=== PATIENT | male | born 1960 | race Caucasian/White ===

== ENCOUNTER 2017-03-21 21:00 | Inpatient (IN) | payer MEDICARE, OTHER ==
--- NOTE | ~2017-03-21 | PN ---
Unit #: [id number] #: [id number] Patient: CORAL MO [id number] [facility] [address] [place] [address] [id number] I MR#: [id number] NAME: CORAL MO ROOM: P252 Age: 56 Sex: M Admission Date: 03/22/2017 : 1960 Attending Physician: Daniel Lopez M.D. Admitting Physician: Daniel Lopez M.D. Primary Care Physician: Primary Care Physician Carin DAMON PROGRESS NOTES DATE 03/23/2017 DISCUSSION The patient is compliant with medications, and brown routine, but has declined for labs to be drawn. He is compliant with reinitiation of medications and continues to complain of dysphoric mood and some paranoia. Dictated by... Daniel Lopez M.D. CB/kory TD: 03/23/2017 12:55 JOB #: [id number] [facility] PROGRESS NOTES Page 1 of 1 X Daniel Lopez MD PROGRESS NOTE
--- NOTE | ~2017-03-21 | PN ---
Unit #: [id number] #: [id number] Patient: CORAL [place] [id number] [facility] [address] [place] [address] [id number] I MR#: [id number] NAME: CORAL MO ROOM: P252 Age: 56 Sex: M Admission Date: 03/22/2017 : 1960 Attending Physician: Daniel Lopez M.D. Admitting Physician: Daniel Lopez M.D. Primary Care Physician: Primary Care Physician Carin DAMON PROGRESS NOTES DATE 03/26/2017 DISCUSSION The patient continues to complain of dysphoric mood. A Depakote level is today pending. The patient has been more active within the therapeutic milieu during this hospital stay. Dictated by... Daniel Lopez M.D. CB/bzg TD: 03/26/2017 14:43 JOB #: [id number] [facility] PROGRESS NOTES Page 1 of 1 X Daniel Lopez MD X PROGRESS NOTE
--- NOTE | ~2017-03-21 | PN ---
Unit #: [id number] #: [id number] Patient: CORAL MO [id number] [facility] [address] [place] [address] [id number] I MR#: [id number] NAME: CORAL MO ROOM: P252 Age: 56 Sex: M Admission Date: 03/22/2017 : 1960 Attending Physician: Daniel Lopez M.D. Admitting Physician: Daniel Lopez M.D. Primary Care Physician: Primary Care Physician Carin GAN NOTES DATE 03/27/2017 DISCUSSION The patient's Depakote level came back yesterday, low at 15, which is understandable given the fact that the patient now admits that he has been taking only one of the three prescribed Depakote tablets. I have firmly confronted him regarding his need to fully comply with his prescribed medication. He is requesting "something for my knee," and I will add Naprosyn to be given twice daily p.r.n. Again, the importance of consistent compliance is discussed somewhat forcefully with the patient today. Dictated by... Daniel Lopez M.D. CB/keisha TD: 03/27/2017 11:47 JOB #: [id number] [facility] GAN NOTES Page 1 of 1 X Daniel Lopez MD X PROGRESS NOTE
--- NOTE | ~2017-03-21 | HP ---
Unit #: [id number] #: [id number] Patient: ZURDO [place] [id number] [place] [address] [id number] I MR#: [id number] NAME: ZURDO MO ROOM: P252 Age: 56 Sex: M Admission Date: 03/22/2017 : 1960 Attending Physician: Daniel Lopez M.D. Admitting Physician: Daniel Lopez M.D. Primary Care Physician: Primary Care Physician No HISTORY AND PHYSICAL HISTORY OF PRESENT ILLNESS Zurdo is a 56 year old admitted to [address] [place] [address] because of his continued abuse of alcohol. He has had other admissions to this facility for treatment of the same. PAST MEDICAL HISTORY 1. Long history of alcohol abuse. 2. Obesity. 3. COPD. 4. High blood pressure. 5. History of dermatitis. 6. Cirrhosis. PAST SURGICAL HISTORY Nothing reported. ALLERGIES Haldol, Seroquel, Risperdal, Zyprexa. SOCIAL HISTORY He does not smoke. Drinks alcohol frequently and denies illicit drug use. FAMILY HISTORY Medically noncontributory. REVIEW OF SYSTEMS CONSTITUTIONAL: No fever or chills. HEENT: Denies any sore throat, ear pain or runny nose. CARDIOVASCULAR: Denies chest pain, irregular heart rhythm or palpitations. CHEST: Denies shortness of breath or cough. No hemoptysis. GASTROINTESTINAL: Denies nausea, vomiting, diarrhea or chronic constipation. ENDOCRINE: Denies history of increased thirst or urination. No recent significant weight loss or gain. GENITOURINARY: Denies dysuria, frequency, or hematuria. SKIN: Denies any rashes. HEMATOLOGIC: Denies history of increased bleeding or bruising. MUSCULOSKELETAL: Denies any hot, swollen joints. No generalized muscle pain. NEUROLOGIC: Denies problems with vision or speech. No frequent, severe headaches. No numbness, tingling or weakness in any extremities. Denies loss of bladder or bowel control. Unit #: [id number] #: [id number] Patient: ZURDO MO CURRENT MEDICATIONS 1. Detox protocol 2. Depakote ER 1500 mg q.h.s. 3. BuSpar 15 mg t.i.d. PHYSICAL EXAMINATION GENERAL: Alert, obese, in no apparent distress. VITAL SIGNS: Blood pressure 160/94, heart rate 90, respirations 16, temperature 98.6. WEIGHT: 270 pounds. HEIGHT: 6'0". SKIN: Warm and dry without rash or lesion. HEENT: Normocephalic. TMs not viewed. Oral and nasal passages clear. Conjunctivae clear. Pupils equal, round and reactive to light and accommodation. Extraocular movements intact. NECK: Supple without lymphadenopathy or thyromegaly. HEART: Regular rate and rhythm without murmur. LUNGS: Clear. ABDOMEN: Soft, nontender. : Not done. EXTREMITIES: No evidence of cyanosis, clubbing or edema. Moves all extremities without focal deficit. NEUROLOGICAL: Grossly within normal limits. Cranial Nerves: II: Visual jackson are intact. III, IV AND : Extraocular movements are intact. Pupils are equal, round and reactive to light. V: Facial sensation is grossly normal. VII: Facial movements and expression are normal. VIII: Auditory acuity grossly intact. IX, X: Uvula is midline. Phonation is normal. XI: Patient shrugs shoulders and turns head normally. XII: Tongue protrudes in the midline. Sensory and Motor Function: Sensory and motor sensation is grossly normal. Motor: moves all extremities well. Coordination: Gait is normal. Deep Tendon Reflexes: Intact. IMPRESSION Psychiatric admission RECOMMENDATIONS PSYCHIATRIC: Per psychiatrist. MEDICAL: 1. I see no contraindications to participating in facility's activities. 2. Detox per protocol. 3. The patient is admitted on no blood pressure medications. Would start Norvasc 5 mg 1 p.o. q day. Continue to monitor blood pressure. He needs to follow up with PCP. MEDICAL PROGNOSIS Good. MEDICAL CONDITION Stable. Unit #: [id number] #: [id number] Patient: ZURDO MO Dictated by... Janna Puckett P.A.-C. for Dudley Melendez/debra TD: 03/23/2017 03:55 JOB #: [id number] HISTORY AND PHYSICAL Page 1 of 1 X Janna Puckett X HISTORY AND PHYSICAL
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
--- NOTE | ~2017-03-21 | PN ---
Unit #: [id number] #: [id number] Patient: CORAL MO [id number] [facility] [address] [place] [address] [id number] I MR#: [id number] NAME: CORAL MO ROOM: P252 Age: 56 Sex: M Admission Date: 03/22/2017 : 1960 Attending Physician: Daniel Lopez M.D. Admitting Physician: Daniel Lopez M.D. Primary Care Physician: Primary Care Physician Carin DAMON PROGRESS NOTES DATE 03/24/2017 DISCUSSION The patient is complaining of increased dizziness with reinitiation of his psychotropic medications, but otherwise his mood seems a bit brighter though he continues to endorse hopelessness and suicidal ideation related to his current living situation. I have encouraged him to increase his participation within the therapeutic milieu. I discussed with him realistic expectations of inpatient care. Dictated by... Daniel Lopez M.D. CB/bzg TD: 03/24/2017 12:35 JOB #: [id number] [facility] PROGRESS NOTES Page 1 of 1 X Daniel Lopez MD X PROGRESS NOTE
--- NOTE | ~2017-03-21 | DS ---
Unit #: [id number] #: [id number] Patient: CORAL MO [id number] [place] [address] [id number] I MR#: [id number] NAME: CORAL MO ROOM: P258 Age: 56 Sex: M Admission Date: 03/22/2017 : 1960 Discharge Date: 03/30/2017 Attending Physician: Daniel Lopez M.D. Primary Care Physician: Carin Primary Care Physician DISCHARGE SUMMARY REASON FOR ADMISSION The patient is a 56-year-old white male admitted to [facility] unit with increasing depression and suicidal ideation as well as increasing alcohol use. HOSPITAL COURSE The patient was admitted to the -[facility] unit and restarted on previously effective medications including Depakote and BuSpar. The patient was initially not compliant with his whole dose of Depakote, but after a discussion with this physician regarding the importance of full compliance did begin to comply fully with his prescribed medications. Otherwise his stay in the hospital was fairly uneventful and his detox went smoothly. By 03/29/2017 the patient was in bright spirits, requesting discharge that was ordered. DISCHARGE DIAGNOSES 1. Bipolar disorder, most recent episode depressed. 2. Alcohol use disorder. 3. History of knee injury. 4. Hypertension. 5. Diabetes mellitus. DISPOSITION The patient is discharged home. FOLLOWUP CARE Followup will take place through the auspices of [facility]. DISCHARGE MEDICATIONS 1. Naprosyn 375 mg q.12 h. p.r.n. knee pain. 2. Glucophage 1000 mg daily for diabetic management. 3. Norvasc 5 mg daily for hypertension. 4. BuSpar 15 mg t.i.d. for anxiety. 5. Depakote ER 1500 mg at bedtime for mood stabilization. 6. Desyrel 100 mg at nighttime p.r.n. insomnia. PROGNOSIS Fair. DIET AND ACTIVITY No restrictions. Unit #: [id number] #: [id number] Patient: CORAL MO Dictated by... Dudley Miguel TD: 03/31/2017 09:51 JOB #: [id number] DISCHARGE SUMMARY Page 1 of 1 X Daniel Lopez MD DISCHARGE SUMMARY
--- NOTE | ~2017-03-21 | CO ---
Unit #: [id number] #: [id number] Patient: Z[place]DO [place] [id number] [place] [address] [id number] I MR#: [id number] NAME: ZURDO MO ROOM: P252 Age: 56 Sex: M Admission Date: 03/22/2017 : 1960 Attending Physician: Daniel Lopez M.D. Primary Care Physician: Primary Care Physician No Consultation Date: 03/22/2017 CONSULTATION REPORT SUBJECTIVE Zurdo is a 56-year-old who has a history of high blood pressure. He was admitted on no medications. Please see H and P dated 03/22/2017. He has been started on Norvasc 5 mg p.o. daily. Dictated by... Janna Puckett P.A.-C. for Dudley Melendez/higinio TD: 03/24/2017 02:34 JOB #: [id number] CONSULTATION REPORT Page 1 of 1 X Janna Puckett CONSULTATION REPORT
--- NOTE | ~2017-03-21 | DS ---
Unit #: [id number] #: [id number] Patient: CORAL MO [id number] [place] [address] [id number] I MR#: [id number] NAME: CORAL MO ROOM: P258 Age: 56 Sex: M Admission Date: 03/22/2017 : 1960 Discharge Date: 03/30/2017 Attending Physician: Daniel Lopez M.D. Primary Care Physician: Primary Care Physician No DISCHARGE SUMMARY JOB NOTE: ADDENDUM ADDENDUM The patient's discharge was canceled on 03/29/2017 after the patient had reported recurrent suicidal ideation. On 03/30/2017, the patient reported that he had "worked things out" and requested discharge. As per his request, discharge was ordered. Dictated by... Daniel Lopez M.D. CB/higinio TD: 03/30/2017 23:36 JOB #: [id number] DISCHARGE SUMMARY Page 1 of 1 X Dainel Lopez MD X DISCHARGE SUMMARY
--- NOTE | ~2017-03-21 | PN ---
Unit #: [id number] #: [id number] Patient: CORAL [place] [id number] [facility] [address] [place] [address] [id number] Malini MR#: [id number] NAME: CORAL MO ROOM: P252 Age: 56 Sex: M Admission Date: 03/22/2017 : 1960 Attending Physician: Daniel Lopez M.D. Admitting Physician: Daniel Lopez M.D. Primary Care Physician: Carin Primary Care Physician [facility] PROGRESS NOTES DATE 03/25/2017 DISCUSSION The patient, because of elevated glucose, is now on a diabetic diet and we are awaiting medical consult. I will check a Depakote level tomorrow and we are looking to discharge the patient in the next couple of days. Dictated by... Daniel Lopez M.D. CB/bianka TD: 03/25/2017 13:21 JOB #: [id number] [facility] PROGRESS NOTES Page 1 of 1 X Daniel Lopez MD PROGRESS NOTE
--- NOTE | ~2017-03-21 | PN ---
Unit #: [id number] #: [id number] Patient: CORAL [place] [id number] [facility] [address] [place] [address] [id number] I MR#: [id number] NAME: CORAL MO ROOM: P252 Age: 56 Sex: M Admission Date: 03/22/2017 : 1960 Attending Physician: Daniel Lopez M.D. Admitting Physician: Daniel Lopez M.D. Primary Care Physician: Primary Care Physician Carin DAMON PROGRESS NOTES DATE 03/28/2017 DISCUSSION The patient states that he "feels better than he has felt in 10 years" with addition of Depakote. He also reports good response to initiation of Naprosyn for knee pain. He is in good spirits and we will continue current treatment expecting a.m. discharge. Dictated by... Daniel Lopez M.D. CB/debra TD: 03/29/2017 01:58 JOB #: [id number] [facility] PROGRESS NOTES Page 1 of 1 X Daniel Lopez MD PROGRESS NOTE
--- NOTE | ~2017-03-21 | CO ---
Unit #: [id number] #: [id number] Patient: ZURDO MO [id number] [place] [address] [id number] I MR#: [id number] NAME: ZURDO MO ROOM: P252 Age: 56 Sex: M Admission Date: 03/22/2017 : 1960 Attending Physician: Daniel Lopez M.D. Primary Care Physician: Primary Care Physician No CONSULTATION REPORT SUBJECTIVE Zurdo is a 56-year-old with a history of alcohol abuse. At time of admission, he gave no history of diabetes mellitus. Admission urinalysis showed a glucose greater than 1000. Serum glucose 251. The patient had no complaints of polyuria or polydipsia. He was started on glucophage 500 mg one p.o. b.i.d. with plans to increase this if tolerated. He knows to follow up with PCP upon discharge. Dictated by... Janna Puckett P.A.-C. for LUZ/yane TD: 03/28/2017 14:18 JOB #: [id number] CONSULTATION REPORT Page 1 of 1 X Janna Puckett CONSULTATION REPORT
[2017-03-23 10:01] LABS: URINE APPEARANCE CLEAR; URINE BILIRUBIN NEG (NEG); URINE BLOOD NEG (NEG); URINE COLOR YELLOW; URINE GLUCOSE >1000 MG/DL (NEG); URINE KETONE 1+ (NEG); URINE LEUKOCYTE ESTERASE NEG (NEG); URINE NITRATE NEG (NEG); URINE PH 6.5 (5-8); URINE PROTEIN NEG (NEG); URINE SPECIFIC GRAVITY 1.037 (1.003-1.035)
[2017-03-23 10:24] LABS: AMPHETAMINE NEG (NEG); BARBITURATES NEG (NEG); BENZODIAZEPINES NEG (NEG); COCAINE NEG (NEG); MARIJUANA NEG (NEG); OPIATES NEG (NEG); TRICYCLIC ANTIDEPRESSANTS NEG (NEG); U METHADONE NEG (NEG)
[2017-03-26 09:47] LABS: BASOPHIL% 0.5 % (0-2.5); EOSINOPHIL# 0.1 X10e3 (0-0.7); EOSINOPHIL% 1.6 % (0.0-7.0); HEMATOCRIT 48.3 % (38.0-50.0); HEMOGLOBIN 16.2 gm/dL (13.0-16.0); LYMPHOCYTE# 0.9 X10e3 (1.0-3.5); LYMPHOCYTE% 14.4 % (17.0-45.0); MEAN CELL VOLUME 94.9 FL (83-96); MEAN CORPUSCULAR HEMOGLOBIN 31.7 PG (28-34); MEAN CORPUSCULAR HGB CONC 33.4 g/dL (30-36); MEAN PLATELET VOLUME 8.5 FL (6.5-11.5); MONOCYTE# 0.8 X10e3 (0-1.0); MONOCYTE% 13.3 % (3.0-12.0); NEUTROPHIL# 4.4 X10e3 (1.5-7.1); NEUTROPHIL% 70.2 % (40-75); PLATELET COUNT 206 X10e3 (140-420); RED BLOOD COUNT 5.09 X10e (3.90-5.60); RED CELL DISTRIBUTION WIDTH 12.4 % (11.0-15.5); WHITE BLOOD COUNT 6.2 X10e3 (4.0-10.5)
[2017-03-26 10:01] LABS: DIFF IND NO
[2017-03-26 10:27] LABS: BILIRUBIN,TOTAL 0.7 mg/dL (0.2-2.0); CALCIUM SERUM 9.2 mg/dL (8.4-10.2); GLOM FILT RATE Estimated 83.8 mL/min (>60); POTASSIUM 4.8 mmol/L (3.5-5.1); PROTEIN TOTAL SERUM 7.2 g/dL (6.0-8.3)
== END 2017-03-30 14:45 | disposition home or self-care (01) | DRG 885 ==
LOC: P2L 03-22 01:25
PROVIDERS: Specialist
PROC: HZ2ZZZZ Detoxification Services for Substance Abuse Treatment (ICD-10-PCS; principal; 2017-03-22)
DX: F31.30 Bipolar disorder, current episode depressed, mild or moderate severity, unspecified (principal); K74.60 Unspecified cirrhosis of liver; E11.9 Type 2 diabetes mellitus without complications; I10 Essential (primary) hypertension; E66.9 Obesity, unspecified; J44.9 Chronic obstructive pulmonary disease, unspecified; F10.20 Alcohol dependence, uncomplicated
CPT/HCPCS: 80053; 80164; 80307; 81003; 82140; 85025; 86592

== ENCOUNTER 2017-04-22 14:28 | Inpatient (IN) | payer MEDICARE, OTHER ==
--- NOTE | ~2017-04-22 | PN ---
Unit #: [id number] #: [id number] Patient: CORAL [place] [id number] [facility] [address] [place] [address] [id number] I MR#: [id number] NAME: CORAL MO ROOM: P178 Age: 56 Sex: M Admission Date: 04/22/2017 : 1960 Attending Physician: Daniel Lopez M.D. Admitting Physician: Daniel Lopez M.D. Primary Care Physician: Primary Care Physician Carin DAMON PROGRESS NOTES DATE 04/27/2017 DISCUSSION The patient is in brighter spirits today and seems less pressured, a Depakote level is pending and discharge is likely to take place within the next couple of days as the patient appears to be approaching his psychiatric baseline. Dictated by... Daniel Lopez M.D. CB/kory TD: 04/28/2017 08:53 JOB #: [id number] [facility] PROGRESS NOTES Page 1 of 1 X Daniel Lopez MD PROGRESS NOTE
--- NOTE | ~2017-04-22 | PN ---
Unit #: [id number] #: [id number] Patient: CORAL MO [id number] [facility] [address] [place] [address] [id number] I MR#: [id number] NAME: CORAL MO ROOM: P178 Age: 56 Sex: M Admission Date: 04/22/2017 : 1960 Attending Physician: Daniel Lopez M.D. Admitting Physician: Daniel Lopez M.D. Primary Care Physician: Primary Care Physician Carin DAMON PROGRESS NOTES DATE 04/26/2017 DISCUSSION The patient remains somewhat elevated and pressured in his presentation. A repeat Depakote level is due tomorrow. We continue current treatment. Dictated by... Daniel Lopez M.D. CB/debra TD: 04/27/2017 05:56 JOB #: [id number] [facility] PROGRESS NOTES Page 1 of 1 X Daniel Lopez MD X PROGRESS NOTE
--- NOTE | ~2017-04-22 | CO ---
Unit #: [id number] #: [id number] Patient: ZURDO [place] 885132 [place] [address] [id number] I MR#: [id number] NAME: ZURDO MO ROOM: P178 Age: 56 Sex: M Admission Date: 04/22/2017 : 1960 Attending Physician: Daniel Lopez M.D. Primary Care Physician: Primary Care Physician No Consultation Date: 04/29/2017 CONSULTATION REPORT SUBJECTIVE Zurdo is a 56-year-old with long history of alcohol abuse and diabetes mellitus. We have been asked to see him for a small sore on his little toe. The patient has no complaints. The area is without redness, swelling, heat, or pus. Pedal pulses detected. ASSESSMENT Small blister on his toe. PLAN Keep it clean with soap and water. Dictated by... Tho ArizmendiAAlfred. for Dudley Melendez/higinio TD: 04/30/2017 22:23 JOB #: [id number] CONSULTATION REPORT Page 1 of 1 X Janna Puckett CONSULTATION REPORT
--- NOTE | ~2017-04-22 | CO ---
Unit #: [id number] #: [id number] Patient: Z[place]DO MO 126346 [place] [address] [id number] I MR#: [id number] NAME: ZURDO MO ROOM: P178 Age: 56 Sex: M Admission Date: 04/22/2017 : 1960 Attending Physician: Daniel Lopez M.D. Primary Care Physician: Primary Care Physician No Consultation Date: 04/25/2017 CONSULTATION REPORT Medical consult was requested by Dr. Lopez and completed on 04/25/2017. HISTORY OF PRESENT ILLNESS Zurdo reports 3 days ago he had diarrhea after restarting his Glucophage. He had not been taking it at home once he was started on 1000 mg b.i.d. The diarrhea was extremely severe. He had some abdominal cramping and took medicines to treat the diarrhea. The diarrhea stopped and since then, he has not had any more bowel movements. He has not had any abdominal pain or fullness, but he is concerned that he might be constipated. He also has reports of occasionally things in the air floating into his eyes and causing some dryness in his eyes. Occasionally, he has some itching and some redness and has to remove mucus from his eyes. He reports that since he has been here that has stopped. He also reports that he has been diagnosed with type 2 diabetes, but he has not been taking his medications due to situation at home and with his neighbors. He stopped taking the Glucophage and so therefore, he has not been taking it. He has no other complaints. PHYSICAL EXAMINATION CARDIAC: Regular rate and rhythm. No murmurs, gallops, or rubs. RESPIRATORY: Clear to auscultation bilaterally. No conjunctivitis noted. ASSESSMENT AND PLAN 1. Allergic conjunctivitis. We will begin cetirizine 10 mg p.o. daily. 2. Type 2 diabetes. We will continue with Glucophage 100 mg p.o. b.i.d. and check fasting blood sugars only for 72 hours. 3. Constipation, we will begin Colace 100 mg p.o. b.i.d. The patient has verified that this is likely due to severe diarrhea for a day or 2 prior. Due to constipation, he will avoid caffeine and increase water intake. Dictated by... Claudette Bajwa/higinio TD: 04/25/2017 18:41 JOB #: [id number] Unit #: [id number] #: [id number] Patient: ZURDO MO TONY CONSULTATION REPORT Page 1 of 1 X MARY MAYBERRY APRN CONSULTATION REPORT
--- NOTE | ~2017-04-22 | DS ---
Unit #: [id number] #: [id number] Patient: CORAL [place] [id number] [place] [address] [id number] I MR#: [id number] NAME: CORAL MO ROOM: P178 Age: 56 Sex: M Admission Date: 04/22/2017 : 1960 Discharge Date: 04/30/2017 Attending Physician: Daniel Lopez M.D. Primary Care Physician: Primary Care Physician No DISCHARGE SUMMARY REASON FOR ADMISSION The patient is a 56-year-old white male, admitted with worsening depression and alcohol use. HOSPITAL COURSE The patient was admitted to the [facility] unit and placed on suicide precautions. A routine detoxification protocol for alcohol was ordered and the patient was restarted on Depakote 1500 mg at bedtime. He showed slow, but steady improvement and his detox was an uneventful one. By 04/30/2017, the patient was in brighter spirits and denied suicidal ideation. He requested discharge and was ordered. FINAL DIAGNOSES Bipolar disorder, most recent episode, mixed; alcohol use disorder; diabetes mellitus; hypertension. DISPOSITION ON DISCHARGE The patient is discharged on the following medications: Desyrel 100 mg at bedtime for insomnia, Depakote ER 500 mg three tablets at bedtime for mood stabilization, BuSpar 15 mg t.i.d. for anxiety, Glucophage 500 mg b.i.d. for diabetic management, naproxen 375 mg every 12 hours p.r.n. pain, Norvasc 5 mg once daily for hypertension. DISCHARGE INSTRUCTIONS No dietary or physical restrictions were placed upon the patient at the time of discharge. FOLLOWUP Followup will take place through the auspices of [facility]. PROGNOSIS The patient's prognosis is considered fair. Dictated by... Daniel Lopez M.D. CB/higinio TD: 04/30/2017 15:00 JOB #: [id number] Unit #: [id number] #: [id number] Patient: CORAL MO DISCHARGE SUMMARY Page 1 of 1 X Daniel Lopez MD X DISCHARGE SUMMARY
--- NOTE | ~2017-04-22 | PN ---
Unit #: [id number] #: [id number] Patient: CORAL MO [id number] [facility] [address] [place] [address] [id number] I MR#: [id number] NAME: CORAL MO ROOM: P178 Age: 56 Sex: M Admission Date: 04/22/2017 : 1960 Attending Physician: Daniel Lopez M.D. Admitting Physician: Daniel Lopez M.D. Primary Care Physician: Primary Care Physician No [facility] PROGRESS NOTES DATE 04/25/2017 DISCUSSION The patient is somewhat expansive and exhibits expansive elevated mood today with hypertalkativity. We will recheck a Depakote level on Wednesday and may need to adjust accordingly. Dictated by... Daniel Lopez M.D. CB/debra TD: 04/25/2017 22:57 JOB #: [id number] [facility] PROGRESS NOTES Page 1 of 1 X Daniel Lopez MD X PROGRESS NOTE
--- NOTE | ~2017-04-22 | HP ---
Unit #: [id number] #: [id number] Patient: ZURDO MO [id number] [place] [address] [id number] I MR#: [id number] NAME: ZURDO MO ROOM: P178 Age: 56 Sex: M Admission Date: 04/22/2017 : 1960 Attending Physician: Daniel Lopez M.D. Admitting Physician: Daniel Lopez M.D. Primary Care Physician: Primary Care Physician No HISTORY AND PHYSICAL HISTORY OF PRESENT ILLNESS Zurdo is a 56 year old, admitted to [facility] because of his continued abuse of alcohol. He was recently discharged from this facility after treatment for the same. The patient was seen and history and physical, dated 03/22/2017 was reviewed. This is current. No changes. Please see history and physical, dated 03/22/2017. Dictated by... Janna Puckett P.A.-C. for Dudley Melendez/kory TD: 04/23/2017 12:04 JOB #: [id number] HISTORY AND PHYSICAL Page 1 of 1 X Janna Puckett HISTORY AND PHYSICAL
--- NOTE | ~2017-04-22 | PN ---
Unit #: [id number] #: [id number] Patient: CORAL MO [id number] [facility] [address] [place] [address] [id number] MR#: [id number] NAME: CORAL MO ROOM: P178 Age: 56 Sex: M Admission Date: 04/22/2017 : 1960 Attending Physician: Daniel Lopez M.D. Admitting Physician: Daniel Lopez M.D. Primary Care Physician: Primary Care Physician Carin DAMON PROGRESS NOTES DATE 04/24/2017 DISCUSSION The patient seems a bit brighter today and more accepting of his living situation stating a need to move from his home. I will ask for internal medicine consult related to his diabetic management as well as the patient's complaints of hemorrhoids and possible conjunctivitis. Dictated by... Daniel Lopez M.D. CB/carter TD: 04/24/2017 13:13 JOB #: [id number] [facility] PROGRESS NOTES Page 1 of 1 X Daniel Lopez MD X PROGRESS NOTE
--- NOTE | ~2017-04-22 | PA ---
Unit #: [id number] #: [id number] Patient: CORAL MO [id number] [place] [address] [id number] I MR#: [id number] NAME: CORAL MO ROOM: P178 Age: 56 Sex: M Admission Date: 04/22/2017 : 1960 Date of Assessment: 04/23/2017 Attending Physician: Daniel Lopez M.D. Admitting Physician: Daniel Lopez M.D. Primary Care Physician: Primary Care Physician No PSYCHIATRIC ASSESSMENT IDENTIFYING INFORMATION The patient is a 56-year-old white male admitted after a period of medication noncompliance. This led to increasing paranoia. INFORMANT(S) Patient. RELIABILITY Poor. CHIEF COMPLAINT None given. HISTORY OF PRESENT ILLNESS The patient is a 56-year-old white male well-known to this physician. He is readmitted after having discontinued his compliance with his psychotropic medications and has suffered a recurrence his paranoid delusions. He also reports that he has not been sleeping and has been having racing thoughts. Patient was dropped off at this facility by a [employer] officer after he had contacted stating that he was having suicidal thoughts related to this episode. Patient reports that he remains fearful of his neighbors fearing that they will steal his belongings and states that he feels as though he is a "prisoner in his apartment." For a more complete history of present illness, please refer to previous dictated notes. PAST PSYCHIATRIC HISTORY Reviewed, no changes. FAMILY HISTORY/SOCIAL HISTORY Reviewed, no changes. MEDICAL HISTORY Reviewed, no changes. MEDICATION HISTORY 1. Trazodone. 2. Depakote. 3. BuSpar. 4. Glucophage. 5. Naprosyn. 6. Norvasc. Unit #: [id number] #: [id number] Patient: CORAL MO ALLERGIES Haldol, Zyprexa, Seroquel, Risperdal, butyrophenones. MENTAL STATUS EXAM At this time, reveals the patient to be a disheveled white male appearing his stated age. He is in no apparent physical distress at the time of examination. He is awake, alert, oriented in all spheres. His mood is mildly dysphoric. His affect constricted. Speech is generally relevant and coherent. There are no gross deficits in memory or cognition noted. Intelligence is judged to be in the average range based on fund of knowledge. The patient is cooperative throughout the interview. He is currently endorsing positive suicidal ideation. He denies homicidal ideation. He reports some positive delusional thinking. His judgement and insight appear to be impaired. ASSETS AND LIABILITIES Patient's assets to be assessed. Liabilities, poor compliance with treatment. ADMITTING DIAGNOSES 1. Bipolar disorder, type 1, mixed phase. 2. Diabetes mellitus. 3. Hypertension. PSYCHIATRIC PLAN/TREATMENT GOALS The patient will be restarted on previously prescribed medications. The importance of full medication compliance is discussed with the patient. Diabetic management will be undertaken by the medical staff. ESTIMATED LENGTH OF STAY Seven to ten days. Dictated by... Daniel Lopez M.D. EUGENIO/carter TD: 04/23/2017 16:45 JOB #: [id number] PSYCHIATRIC ASSESSMENT Page 1 of 1 X Daniel Lopez MD X PSYCHIATRIC ASSESSMENT
--- NOTE | ~2017-04-22 | PN ---
Unit #: [id number] #: [id number] Patient: CORAL MO [id number] [facility] [address] [place] [address] [id number] I MR#: [id number] NAME: CORAL MO ROOM: P178 Age: 56 Sex: M Admission Date: 04/22/2017 : 1960 Attending Physician: Daniel Lopez M.D. Admitting Physician: Daniel Lopez M.D. Primary Care Physician: Primary Care Physician Carin DAMON PROGRESS NOTES DATE 04/28/2017 DISCUSSION The patient is in brighter spirits today. His repeat Depakote level is 70. We have discussed realistic expectations of inpatient care and we will look to discharge the patient before the weekend. Dictated by... Daniel Lopez M.D. CB/debra TD: 04/28/2017 23:07 JOB #: [id number] [facility] PROGRESS NOTES Page 1 of 1 X Daniel Lopez MD PROGRESS NOTE
--- NOTE | ~2017-04-22 | PN ---
Unit #: [id number] #: [id number] Patient: CORAL MO [id number] [facility] [address] [place] [address] [id number] I MR#: [id number] NAME: CORAL MO ROOM: P178 Age: 56 Sex: M Admission Date: 04/22/2017 : 1960 Attending Physician: Daniel Lopez M.D. Admitting Physician: Daniel Lopez M.D. Primary Care Physician: Primary Care Physician No [facility] PROGRESS NOTES DATE 04/29/2017 DISCUSSION The patient is in brighter spirits today and seems less elevated in mood. Should he sustain progress, we are probably looking at a.m. discharge. Dictated by... Daniel Lopez M.D. CB/bzg TD: 04/29/2017 13:15 JOB #: [id number] [facility] PROGRESS NOTES Page 1 of 1 X Daniel Lopez MD X PROGRESS NOTE
[2017-04-23 09:43] LABS: BASOPHIL% 0.5 % (0-2.5); EOSINOPHIL# 0.1 X10e3 (0-0.7); EOSINOPHIL% 1.8 % (0.0-7.0); HEMATOCRIT 42.7 % (38.0-50.0); HEMOGLOBIN 14.4 gm/dL (13.0-16.0); LYMPHOCYTE# 1.1 X10e3 (1.0-3.5); LYMPHOCYTE% 23.3 % (17.0-45.0); MEAN CORPUSCULAR HGB CONC 33.7 g/dL (30-36); MEAN PLATELET VOLUME 8.6 FL (6.5-11.5); MONOCYTE# 0.8 X10e3 (0-1.0); MONOCYTE% 16.1 % (3.0-12.0); NEUTROPHIL# 2.7 X10e3 (1.5-7.1); NEUTROPHIL% 58.3 % (40-75); PLATELET COUNT 141 X10e3 (140-420); RED CELL DISTRIBUTION WIDTH 12.9 % (11.0-15.5); WHITE BLOOD COUNT 4.7 X10e3 (4.0-10.5)
[2017-04-23 09:45] LABS: DIFF IND NO
[2017-04-23 10:09] LABS: ALBUMIN SERUM 3.6 g/dL (3.5-5.0); BILIRUBIN,TOTAL 1.1 mg/dL (0.2-2.0); CALCIUM SERUM 8.5 mg/dL (8.4-10.2); CREATININE SERUM 0.9 mg/dL (0.6-1.4); GLOM FILT RATE Estimated 95.1 mL/min (>60); POTASSIUM 3.7 mmol/L (3.5-5.1); PROTEIN TOTAL SERUM 6.4 g/dL (6.0-8.3)
[2017-04-28 09:31] LABS: URINE APPEARANCE CLEAR; URINE BILIRUBIN NEG (NEG); URINE BLOOD NEG (NEG); URINE COLOR YELLOW; URINE GLUCOSE >1000 MG/DL (NEG); URINE KETONE 1+ (NEG); URINE LEUKOCYTE ESTERASE NEG (NEG); URINE NITRATE NEG (NEG); URINE PROTEIN NEG (NEG); URINE SPECIFIC GRAVITY 1.037 (1.003-1.035)
[2017-04-28 11:29] LABS: AMPHETAMINE NEG (NEG); BARBITURATES NEG (NEG); BENZODIAZEPINES NEG (NEG); COCAINE NEG (NEG); MARIJUANA NEG (NEG); OPIATES NEG (NEG); TRICYCLIC ANTIDEPRESSANTS NEG (NEG); U METHADONE NEG (NEG)
== END 2017-04-30 16:17 | disposition home or self-care (01) | DRG 885 ==
LOC: P1E 17:09
PROVIDERS: Specialist
PROC: HZ2ZZZZ Detoxification Services for Substance Abuse Treatment (ICD-10-PCS; principal; 2017-04-22)
DX: F31.60 Bipolar disorder, current episode mixed, unspecified (principal); E11.9 Type 2 diabetes mellitus without complications; I10 Essential (primary) hypertension; H10.10 Acute atopic conjunctivitis, unspecified eye; K56.41 Fecal impaction; F10.10 Alcohol abuse, uncomplicated; S90.426A Blister (nonthermal), unspecified lesser toe(s), initial encounter
CPT/HCPCS: 80053; 80164; 80307; 81003; 82140; 82947; 85025

== ENCOUNTER 2017-05-01 14:00 | Inpatient (IN) | payer MEDICARE, OTHER ==
--- NOTE | ~2017-05-01 | PN ---
Unit #: [id number] #: [id number] Patient: CORAL ARANDA [id number] [facility] [address] [place] [address] [id number] MR#: [id number] NAME: CORAL ARANDA ROOM: P263 Age: 56 Sex: M Admission Date: 05/01/2017 : 1960 Attending Physician: Jared Ibarra M.D. Admitting Physician: Jared Ibarra M.D. Primary Care Physician: Primary Care Physician Carin DAMON PROGRESS NOTES DATE 05/07/2017 DISCUSSION Mr. Aranda is a 56-year-old white male who was seen today and chart was reviewed and discussed with the staff. He has been anxious, withdrawn and rather seclusive to himself. Meanwhile, he has been cooperative with treatment recommendations and has been taking medications and tolerating them fairly well. MENTAL STATUS EXAMINATION Middle-aged white male who was casually dressed with fair personal hygiene and appears to be in no acute distress or discomfort. He was awake and alert with intact orientation. His mood was anxious with congruent affect. He denies any suicidal or homicidal ideations. His insight and judgement remains slightly impaired. TREATMENT PLAN 1. Will continue on his current medications and treatment protocol. Will monitor his response to medications and make further adjustments as needed. 2. We will continue to follow up. Dictated by... Amarjit Ronquillo M.D. ALEX/carter TD: 05/07/2017 15:54 JOB #: [id number] Unit #: [id number] #: [id number] Patient: CORAL ARANDA [facility] PROGRESS NOTES Page 1 of 1 X Amarjit Ronquillo MD X PROGRESS NOTE
--- NOTE | ~2017-05-01 | PN ---
Unit #: [id number] #: [id number] Patient: CORAL ARANDA [id number] [facility] [address] [place] [address] [id number] I MR#: [id number] NAME: CORAL ARANDA ROOM: P263 Age: 56 Sex: M Admission Date: 05/01/2017 : 1960 Attending Physician: Daniel Lopez M.D. Admitting Physician: Daniel Lopez M.D. Primary Care Physician: Primary Care Physician Carin DAMON PROGRESS NOTES DATE 05/09/2017 DISCUSSION Mr. Aranda is a 56-year-old, white male with mood disorder who was seen today and chart was reviewed and case was discussed with the staff. He remains anxious, withdrawn, depressed and rather seclusive to himself. Meanwhile, he has been cooperative with the treatment recommendations. He has been taking the medication and tolerating them fairly well with no reported side effects. MENTAL STATUS EXAM Middle-aged white male who was casually dressed with fair personal hygiene, appears to be in no acute distress or discomfort. He was awake and alert with intact orientation. His mood was anxious with congruent affect. He denies any suicidal or homicidal ideation. His insight and judgement remains slightly impaired. TREATMENT PLAN 1. We will continue him on his current medications and treatment protocol. We will monitor his response to the medication and make further adjustments as needed. 2. We will continue to follow up. Dictated by... Dudley Cabrera/debra TD: 05/11/2017 03:40 JOB #: [id number] Unit #: [id number] #: [id number] Patient: CORAL ARANDA [facility] PROGRESS NOTES Page 1 of 1 X Amarjit Ronquillo MD PROGRESS NOTE
--- NOTE | ~2017-05-01 | HP ---
Unit #: [id number] #: [id number] Patient: CORAL MO [id number] [place] [address] [id number] I MR#: [id number] NAME: CORAL MO ROOM: P263 Age: 56 Sex: M Admission Date: 05/01/2017 : 1960 Attending Physician: Jared Ibarra M.D. Admitting Physician: Jared Ibarra M.D. Primary Care Physician: Primary Care Physician No HISTORY AND PHYSICAL HISTORY OF PRESENT ILLNESS The patient is a 56-year-old male admitted to [address] [place] [address] on 05/01/2017 for suicidal ideations. PAST MEDICAL HISTORY 1. Diabetes 2. Hypertension PAST SURGICAL HISTORY None noted. SOCIAL HISTORY The patient is on social security. He drinks one six pack of alcohol daily. FAMILY MEDICAL HISTORY Noncontributory. ALLERGIES No known drug allergies. CURRENT MEDICATIONS 1. Haldol 2. Risperdal 3. Zyprexa 4. Quetiapine REVIEW OF SYSTEMS CONSTITUTIONAL: No fever or chills. HEENT: Denies any sore throat, ear pain or runny nose. CARDIOVASCULAR: Denies chest pain, irregular heart rhythm or palpitations. CHEST: Denies shortness of breath or cough. No hemoptysis. GASTROINTESTINAL: Denies nausea, vomiting, diarrhea or chronic constipation. ENDOCRINE: Denies history of increased thirst or urination. No recent significant weight loss or gain. GENITOURINARY: Denies dysuria, frequency, or hematuria. SKIN: Denies any rashes. HEMATOLOGIC: Denies history of increased bleeding or bruising. MUSCULOSKELETAL: Denies any hot, swollen joints. No generalized muscle pain. EXTREMITIES: He complains of an ulcer on his fifth digit of his right foot. NEUROLOGIC: Denies problems with vision or speech. No frequent, severe Unit #: [id number] #: [id number] Patient: CORAL MO headaches. No numbness, tingling or weakness in any extremities. Denies loss of bladder or bowel control. PHYSICAL EXAM GENERAL: He is awake, alert and oriented in no acute distress. VITAL SIGNS: Temperature 98.6, heart rate 93, respiration 18, blood pressure 133/79. HEIGHT: 6'0". WEIGHT: 160 pounds. SKIN: Warm and dry without rash or lesion. HEENT: Normocephalic. TMs not viewed. Oral and nasal passages clear. Conjunctivae clear. PERRLA. EOMs intact. NECK: Supple without lymphadenopathy or thyromegaly. HEART: Regular rate and rhythm without murmur. LUNGS: Clear. ABDOMEN: Soft, nontender. : Not done. EXTREMITIES: No evidence of cyanosis, clubbing or edema. Moves all without focal deficit. NEUROLOGICAL: Grossly within normal limits. Cranial Nerves: II: Visual jackson are intact. III, IV AND : Extraocular movements are intact. Pupils are equal, round and reactive to light. V: Facial sensation is grossly normal. VII: Facial movements and expression are normal. VIII: Auditory acuity grossly intact. IX, X: Uvula is midline. Phonation is normal. XI: Patient shrugs shoulders and turns head normally. XII: Tongue protrudes in the midline. Sensory and Motor Function: Sensory and motor sensation is grossly normal. Motor: moves all extremities well. IMPRESSION 1. Psychiatric admission. 2. Hypertension. 3. Diabetes. RECOMMENDATIONS Psychiatric per psychiatrist. MEDICAL: No contraindication to participate in facility activities. MEDICAL PROGNOSIS Good. MEDICAL CONDITION Stable. Dictated by... Claudette Fernando/debra TD: 05/02/2017 21:15 Unit #: [id number] #: [id number] Patient: CORAL MO JOB #: [id number] HISTORY AND PHYSICAL Page 1 of 1 X ANABEL CHAPMAN APRN X HISTORY AND PHYSICAL
--- NOTE | ~2017-05-01 | PA ---
Unit #: [id number] #: [id number] Patient: CORAL [place] [id number] [facility] [address] [place] [address] [id number] I MR#: [id number] NAME: CORAL MO ROOM: P263 Age: 56 Sex: M Admission Date: 05/01/2017 : 1960 Date of Assessment: 05/02/2017 Attending Physician: Jared Ibarra M.D. Admitting Physician: Jared Ibarra M.D. Primary Care Physician: Primary Care Physician No PSYCHIATRIC ASSESSMENT INFORMANTS The patient reliability, fair informant and chart reliability, good. CHIEF COMPLAINT Depression and suicidal ideation. HISTORY OF PRESENT ILLNESS Mr. Renner is a 56-year-old male, who was admitted under Dr. Lopez, was in the hospital from 04/22/2017 and discharged on 04/30/2017. The patient reports that he was not ready, still having suicidal thoughts and depression. The patient has a history of multiple admission in 03/2017 and 04/22/2017. The patient reported "I want to kill myself with a plan to overdose or cut my wrist." History of suicide attempt in 1999. The patient received outpatient services through Dr. Lopez's office for depression and bipolar disorder. The patient lives by himself. The patient having suicidal ideation. History of previous suicide attempt, feeling of hopelessness and worthlessness, and severely depressed. Denied any psychotic symptom or any homicidal ideation. Needing inpatient admission at this time for psychiatric stabilization. The patient denied any use of any drugs or alcohol. PAST PSYCHIATRIC HISTORY Remarkable for history of previous multiple treatment at [facility] . Previous admission this year in 03/2017 and 04/2017. FAMILY HISTORY AND SOCIAL HISTORY The patient lives by himself. Poor support system. No history of legal problem. No history of abuse. MEDICAL HISTORY Remarkable for history of alcohol abuse, obesity, COPD, hypertension, history of dermatitis, and cirrhosis. MEDICATION HISTORY The patient is on Depakote and BuSpar combination. ALLERGIES Haldol, Seroquel, Risperdal, and Zyprexa. SUBSTANCE ABUSE HISTORY The patient reported to writer technical publications no history of drug or alcohol, but according to the previous notes and reports and intake reports, the patient has a significant problem with the alcohol abuse, age of onset 26. Unit #: [id number] #: [id number] Patient: CORAL MO According to the patient, last use 3 weeks ago. The patient denied any withdrawal symptoms at this time. REVIEW OF SYSTEMS HEENT: Eyes, clear. Ears, nose, mouth, and throat; clear. CARDIOVASCULAR: Unremarkable. RESPIRATORY: Unremarkable. GI: Unremarkable. : Unremarkable. SKIN: Unremarkable. LYMPH NODE: Unremarkable. NEUROLOGIC: Unremarkable. ENDOCRINE: Unremarkable. HEMATOLOGIC: Unremarkable. ALLERGIC/IMMUNOLOGIC: Unremarkable. MUSCULOSKELETAL: Muscle strength and tone, no atrophy or abnormal movement. Gait normal. MENTAL STATUS EXAMINATION CONSTITUTIONAL: Measurement of vital signs; temperature 97.6, heart rate 96, respiratory rate 18, oxygen saturation 98%, and blood pressure 119/65. Height 6 feet and weight 260 pounds. GENERAL APPEARANCE: The patient dressed casually. The patient did not show any facial deformity. MUSCULOSKELETAL: Please see above. PSYCHIATRIC EXAMINATION Description of speech, regular rate and normal volume. Description of thought process, goal directed. Description of association, intact. Description of abnormal psychotic thinking; the patient denied any hallucination or delusions, but suicidal ideation and depression. Denied any homicidal ideation. Description of the patient's judgment: Concerning everyday activity, poor. Social situation, poor. Concerning psychiatric condition, poor. Complete mental status examination; oriented in time, place, and person. Recent and remote memory, fair. Attention span and concentration, fair. Language, able to name object and repeat phrases. Fund of knowledge, aware of current event and passive vocabulary intact. Mood and affect, sad and dysphoric. Insight and judgment, fair to poor. ASSETS AND LIABILITIES Assets, the patient is articulate and able to take care of his ADL. Liability, history of depression and alcohol abuse. ADMITTING DIAGNOSES Psychiatric: Bipolar mood disorder, recurrent, depressed, F31.9 and alcohol use disorder, severe, F10.20. Secondary diagnosis: Deferred. Medical diagnoses: History of obesity, chronic obstructive pulmonary disease, hypertension, history of dermatitis, and cirrhosis. Stressors: Psychosocial stressors. PSYCHIATRIC PLAN AND TREATMENT GOAL AND DISCHARGE PLAN 1. Advised to admit the patient on the inpatient unit. Provide safe, Unit #: [id number] #: [id number] Patient: CORAL MO supportive, and structured environment. 2. Ordered labs; CBC, CMP, UA, and UDS. 3. Advised to resume home medication. If needed, consider further adjustment of medication. The patient to attend all the programing including group therapy, individual therapy, and chemical dependency group. TREATMENT GOAL To attain euthymic mood, gain insight into his problem, and learn coping skills. DISCHARGE PLAN Plan to stabilize the patient and consider followup in outpatient program. ESTIMATED LENGTH OF STAY 2 weeks. Dictated by... Jared Ibarra M.D. ZORA/higinio TD: 05/02/2017 14:56 JOB #: [id number] PSYCHIATRIC ASSESSMENT Page 1 of 1 X Jared Ibarra MD X PSYCHIATRIC ASSESSMENT
--- NOTE | ~2017-05-01 | PN ---
Unit #: [id number] #: [id number] Patient: CORAL MO [id number] [facility] [address] [place] [address] [id number] MR#: [id number] NAME: CORAL MO ROOM: 63 Age: 56 Sex: M Admission Date: 05/01/2017 : 1960 Attending Physician: Jared Ibarra M.D. Admitting Physician: Jared Ibarra M.D. Primary Care Physician: Primary Care Physician Carin DAMON PROGRESS NOTES DATE 05/02/2017 DISCUSSION Ms. Renner is a 56-year-old male seen on 05/02/2017. The patient interviewed, chart reviewed. Obtained information from nursing staff. The patient was compliant and cooperative. Mood sad, dysphoric, flat, anxious. Complete review of systems unremarkable. MENTAL STATUS EXAMINATION General appearance, the patient dressed casually. Attention span and concentration fair. Oriented to place and person. Mood and affect labile. Speech monotone. Thought process concrete. The patient denied any thoughts of harming self or others but having passive thoughts. Unable to contract for safety if discharged home today. Recent and remote memory poor. Insight and judgement poor. DIAGNOSES Bipolar mood disorder recurrent severe depressed F31.9. Alcohol use disorder severe (1) ASSESSMENT/PLAN Advise to continue with current medication with a plan to add Celexa 20 mg daily. If needed consider further adjustment of medication. Dictated by... Dudley Pham/debra TD: 05/03/2017 04:19 JOB #: [id number] Unit #: [id number] #: [id number] Patient: CORAL MO [facility] PROGRESS NOTES Page 1 of 1 X Jared Ibarra MD X PROGRESS NOTE
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
--- NOTE | ~2017-05-01 | CO ---
Unit #: [id number] #: [id number] Patient: CORAL [place] [id number] [facility] [address] [place] [address] [id number] I MR#: [id number] NAME: CORAL MO ROOM: P263 Age: 56 Sex: M Admission Date: 05/01/2017 : 1960 Attending Physician: Jared Ibarra M.D. Primary Care Physician: Primary Care Physician No Consultation Date: 05/02/2017 CONSULTATION REPORT ORDERING PROVIDER Dr. Ibarra. REASON FOR CONSULT 1. Diabetes. 2. Toe lesion. SUBJECTIVE The patient was very recently discharged from [facility]. When he left, he was on metformin b.i.d. and sliding scale insulin. He does not know when his last A1c was and says he is "okay about taking his medications at home." The patient also complains of an ulcer on his 5th toe on his right foot. He says it has been there about a week. It is slightly painful. It is not draining at this time. OBJECTIVE The patient's blood sugars were reviewed on 05/01/2017 which was yesterday, his dinnertime blood sugar was 320, at bedtime it was 313. The nurse-practitioner yesterday went ahead and started him back on his metformin and sliding scale NovoLog per protocol. On the patient's right 5th metatarsal, there is approximately a 1 cm ulcer that is very superficial. It does not appear to be bleeding or draining. There is some mild tenderness to palpation. The skin around the ulcer is intact and not erythematous or edematous. No streaking noted. ASSESSMENT 1. Diabetes. 2. Foot ulcer. PLAN 1. Continue previous insulin orders. 2. Soak feet in Epsom salt b.i.d. 3. After soaking feet, apply Silvadene to wound and cover. Dictated by... Claudette Fernando/higinio TD: 05/02/2017 22:21 JOB #: [id number] Unit #: [id number] #: [id number] Patient: CORAL MO CONSULTATION REPORT Page 1 of 1 X CHAPMAN, ANABEL WOODRUFF X CONSULTATION REPORT
--- NOTE | ~2017-05-01 | PN ---
Unit #: [id number] #: [id number] Patient: ZURDO ARANDA [id number] [facility] [address] [place] [address] [id number] I MR#: [id number] NAME: ZURDO ARANDA ROOM: 63 Age: 56 Sex: M Admission Date: 05/01/2017 : 1960 Attending Physician: Jared Ibarra M.D. Admitting Physician: Jared Ibarra M.D. Primary Care Physician: Primary Care Physician Carin LEMONSCE PROGRESS NOTES DATE 05/05/2017 DISCUSSION Zurdo Aranda is a 56-year-old male seen on 05/05/2017. The patient interviewed, chart reviewed. Obtained information from nursing staff. The patient was compliant and cooperative. Mood labile. The patient's vital signs stable 98.7, 72, 126/76. The patient still feeling sad depressed. Vital signs stable. The patient's blood sugar 252, still having problems in taking his medications regularly. The patient still seems sad, depressed, withdrawn. Complete review of systems unremarkable. MENTAL STATUS EXAMINATION General appearance, the patient dressed casually. Attention span and concentration fair. Oriented to place and person. Mood and affect sad, dysphoric, flat. Speech monotone. Thought process concrete. The patient reported having passive SI. denied any homicidal ideation, guarded. Recent and remote memory poor. Insight and judgement poor. DIAGNOSES Major depressive disorder recurrent. ASSESSMENT/PLAN Advise to continue with current medication and therapeutic protocol. If needed consider further adjustment of medication. Dictated by... Dudley Pham/debra TD: 05/06/2017 01:37 JOB #: [id number] Unit #: [id number] #: [id number] Patient: ZURDO ARANDA [facility] PROGRESS NOTES Page 1 of 1 X Jared Ibarra MD PROGRESS NOTE
--- NOTE | ~2017-05-01 | PN ---
Unit #: [id number] #: [id number] Patient: CORAL MO [id number] [facility] [address] [place] [address] [id number] I MR#: [id number] NAME: CORAL MO ROOM: 63 Age: 56 Sex: M Admission Date: 05/01/2017 : 1960 Attending Physician: Jared Ibarra M.D. Admitting Physician: Jared Ibarra M.D. Primary Care Physician: Primary Care Physician Carin [facility] PROGRESS NOTES DATE 05/04/2017 DISCUSSION Mr. Renner is a 56-year-old male seen on 05/03/2017. The patient interviewed, chart reviewed. Obtained information from nursing staff. The patient continues to report feeling sad, depressed, withdrawn, isolative but able to participate in program. Mood seems depressed. Complete review of systems unremarkable. MENTAL STATUS EXAMINATION General appearance, the patient dressed casually. Attention span and concentration fair. Oriented to place and person. Mood and affect sad, dysphoric. Speech monotone. Thought process concrete. The patient denied any thoughts of harming self or others but having passive SI. Recent and remote memory poor. Insight and judgement poor. DIAGNOSES Major depressive disorder recurrent ASSESSMENT/PLAN Advise to continue with current medication and therapeutic protocol. If needed consider further adjustment of medication. Dictated by... Dudley Pham/debra TD: 05/05/2017 03:26 JOB #: [id number] Unit #: [id number] #: [id number] Patient: CORAL [facility] PROGRESS NOTES Page 1 of 1 X Jared Ibarra MD PROGRESS NOTE
--- NOTE | ~2017-05-01 | PN ---
Unit #: [id number] #: [id number] Patient: CORAL [place] [id number] [facility] [address] [place] [address] [id number] I MR#: [id number] NAME: CORAL MO ROOM: 63 Age: 56 Sex: M Admission Date: 05/01/2017 : 1960 Attending Physician: Jared Ibarra M.D. Admitting Physician: Jared Ibarra M.D. Primary Care Physician: Primary Care Physician Carin LEMONSCE PROGRESS NOTES DATE OF SERVICE 05/03/2017 DISCUSSION Mr. Renner is a 56-year-old male seen on 05/03/2017. The patient interviewed, chart reviewed. Obtained information from nursing staff. The patient continues to be sad, depressed, withdrawn, isolative, flat affect. Feeling of hopelessness, worthlessness, but polite, cooperative during interview. The patient has multiple health conditions. Complete Review of Systems: Unremarkable. MENTAL STATUS EXAMINATION General Appearance: The patient dressed casually. Attention span, concentration: Fair. Oriented in time, place, and person. Mood and affect: Sad, depressed. Speech: Monotone. Thought process: Rhodes. The patient reported passive SI, withdrawn, isolative, guarded, depressed. Recent and remote memory: Poor. Insight and judgment: Poor. DIAGNOSIS Major depressive disorder, recurrent. ASSESSMENT/PLAN Advised to continue with current medication and therapeutic protocol. If needed, consider further adjustment of medication. Dictated by... Dudley Pham/keisha TD: 05/04/2017 08:59 JOB #: [id number] Unit #: [id number] #: [id number] Patient: CORAL [place] [facility] PROGRESS NOTES Page 1 of 1 X Jared Ibarra MD X PROGRESS NOTE
--- NOTE | ~2017-05-01 | PN ---
Unit #: [id number] #: [id number] Patient: ZURDO ARANDA [id number] [facility] [address] [place] [address] [id number] I MR#: [id number] NAME: ZURDO ARANDA ROOM: 63 Age: 56 Sex: M Admission Date: 05/01/2017 : 1960 Attending Physician: Jared Ibarra M.D. Admitting Physician: Jared Ibarra M.D. Primary Care Physician: Primary Care Physician No [facility] PROGRESS NOTES DATE 05/06/2017 DISCUSSION Zurdo Aranda is a 56-year-old male, seen on 05/06/2017. The patient interviewed, chart reviewed, and obtained information from the nursing staff. The patient was able to participate in programming, maintained safe behavior but still reporting feeling sad, depressed. Vital signs, stable, 98.2, 68, 16, and 131/77. The patient still having periods of hopelessness, worthlessness, passive SI but denied any plans. The patient was noncompliant with medication for diabetes, does not want to check his diabetes. REVIEW OF SYSTEMS Complete review of systems unremarkable. MENTAL STATUS EXAMINATION General appearance: Patient moderately obese, dressed casually. Attention span and concentration, fair. Oriented in time, place, and person. Mood and affect, labile. Speech, monotone. Thought process, concrete. The patient having passive SI, sad, depressed, withdrawn, denied any psychotic symptoms. Recent and remote memory, poor. Insight and judgment, poor. DIAGNOSIS Major depressive disorder, recurrent, severe. ASSESSMENT/PLAN Advised to continue with the current medication and therapeutic protocol, and encourage the patient to be compliant with his medication, continue with the inpatient programming. If needed consider further adjustment of medication. Dictated by... Jared Ibarra M.D. Unit #: [id number] #: [id number] Patient: ZURDO ARANDA ZORA/kory TD: 05/07/2017 05:18 JOB #: [id number] [facility] PROGRESS NOTES Page 1 of 1 X Jared Ibarra MD PROGRESS NOTE
--- NOTE | ~2017-05-01 | PN ---
Unit #: [id number] #: [id number] Patient: CORAL ARANDA [id number] [facility] [address] [place] [address] [id number] I MR#: [id number] NAME: CORAL ARANDA ROOM: P263 Age: 56 Sex: M Admission Date: 05/01/2017 : 1960 Attending Physician: Jared Ibarra M.D. Admitting Physician: Jared Ibrara M.D. Primary Care Physician: Primary Care Physician Carin [facility] PROGRESS NOTES DATE 05/08/2017 DISCUSSION Ms. Aranda is a 56-year-old white male who was seen today and chart was reviewed and case was discussed with the staff. He appears to be doing fairly well and has been showing improvement in his depression and anxiety and has been cooperative with treatment recommendations and has been taking medications and tolerating them fairly well with no reported side effects. MENTAL STATUS EXAMINATION Middle-aged white male who was casually dressed with fair personal hygiene and appears to be in no acute distress or discomfort. He was awake and alert with intact orientation. His mood was anxious with congruent affect. He denies any suicidal or homicidal ideations. His insight and judgement remains slightly impaired. TREATMENT PLAN 1. Will continue on his current medications and treatment protocol. Will monitor his response to the medications and make further adjustments as needed. 2. Will continue to follow up. Dictated by... Amarjit Ronquillo M.D. IAA/carter TD: 05/08/2017 22:09 JOB #: [id number] Unit #: [id number] #: [id number] Patient: CORAL ARANDA [facility] PROGRESS NOTES Page 1 of 1 X Amarjit Ronquillo MD X PROGRESS NOTE
[2017-05-02 13:23] LABS: AMPHETAMINE NEG (NEG); BARBITURATES NEG (NEG); BENZODIAZEPINES NEG (NEG); COCAINE NEG (NEG); MARIJUANA NEG (NEG); OPIATES NEG (NEG); TRICYCLIC ANTIDEPRESSANTS NEG (NEG); U METHADONE NEG (NEG)
== END 2017-05-10 13:15 | disposition home or self-care (01) | DRG 885 ==
LOC: P2L 16:20
PROVIDERS: Psychiatry & Neurology Psychiatry
DX: F31.9 Bipolar disorder, unspecified (principal); E11.621 Type 2 diabetes mellitus with foot ulcer; R45.851 Suicidal ideations; E11.9 Type 2 diabetes mellitus without complications; I10 Essential (primary) hypertension; E66.9 Obesity, unspecified; F10.20 Alcohol dependence, uncomplicated; L97.519 Non-pressure chronic ulcer of other part of right foot with unspecified severity
CPT/HCPCS: 80164; 80307; 82140; 82947

== ENCOUNTER 2017-05-18 06:00 | Inpatient (IN) | payer MEDICARE, OTHER ==
--- NOTE | ~2017-05-18 | PA ---
Unit #: [id number] #: [id number] Patient: CORAL MO [id number] [place] [address] [id number] I MR#: [id number] NAME: CORAL MO ROOM: P214 Age: 56 Sex: M Admission Date: 05/19/2017 : 1960 Date of Assessment: 05/19/2017 Attending Physician: Daniel Lopez M.D. Admitting Physician: Daniel Lopez M.D. Primary Care Physician: Generic Doctor Not In System PSYCHIATRIC ASSESSMENT IDENTIFYING INFORMATION The patient is a 56-year-old white male admitted yet again voicing positive suicidal ideation and paranoia. CHIEF COMPLAINT None given. INFORMANT(S) Chart, patient could not aroused for interview. HISTORY OF PRESENT ILLNESS The patient is a 56-year-old white male well-known to this physician. He was last discharged on 05/10 but returns with much the same issue complaining that his neighbors are stealing his belongings and he is fearful to leave his apartment. The patient claims that he has been compliant with prescribed medications which include BuSpar, Depakote, Naprosyn, Silvadene, Glucophage and Celexa. When seen today the patient is soundly sleeping could not be aroused for interview. PAST PSYCHIATRIC HISTORY Reviewed, no changes. MEDICAL HISTORY Reviewed, no changes. MEDICATION HISTORY 1. Depakote. 2. BuSpar. 3. Naprosyn. 4. Silvadene. 5. Colace. 6. Celexa. 7. Glucophage. 8. Desyrel. ALLERGIES Zyprexa, Risperdal, Seroquel, Haldol. FAMILY HISTORY Reviewed, no changes. SOCIAL HISTORY Reviewed, no changes. Unit #: [id number] #: [id number] Patient: CORAL MO MENTAL STATUS EXAM At this time, reveals the patient to be an obese disheveled soundly sleeping white male appearing his stated age. He cannot be aroused for interview. ASSETS AND LIABILITIES Patient's assets to be assessed. Liabilities, ongoing living situation, lack of resources. ADMITTING DIAGNOSES Bipolar disorder, depressed phase. PSYCHIATRIC PLAN/TREATMENT GOALS The patient remains hospitalized for safety and stabilization. We will restart previously prescribed medications. The patient will participate in appropriate and brown milieu activities and suicide precautions remain in place. ESTIMATED LENGTH OF STAY Five to seven days. Dictated by... Daniel Lopez M.D. EUGENIO/debra TD: 05/19/2017 20:44 JOB #: [id number] PSYCHIATRIC ASSESSMENT Page 1 of 1 X Daniel Lopez MD X PSYCHIATRIC ASSESSMENT
--- NOTE | ~2017-05-18 | HP ---
Unit #: [id number] #: [id number] Patient: Z[place]DO [place] [id number] [place] [address] [id number] I MR#: [id number] NAME: ZURDO MO ROOM: P214 Age: 56 Sex: M Admission Date: 05/19/2017 : 1960 Attending Physician: Daniel Lopez M.D. Admitting Physician: Daniel Lopez M.D. Primary Care Physician: Generic Doctor Not In System HISTORY AND PHYSICAL HISTORY OF PRESENT ILLNESS Zurdo is a 56 year old admitted to [address] [place] [address] because of his continued abuse of alcohol. He was just discharged from this facility after treatment for the same. The patient was seen and H and P dated 05/02/2017 was reviewed. This is current except he does complain of right knee pain. He tells us that he was seen in the emergency room at [facility]. He is noted to have a limp. Please see history and physical dated 05/02/2017 for complete history and physical exam. He has Tylenol and naproxen ordered for knee pain. Dictated by... Janna Puckett P.A.-C. for Dudley Melendez/debra TD: 05/19/2017 23:26 JOB #: [id number] HISTORY AND PHYSICAL Page 1 of 1 X Janna Puckett X HISTORY AND PHYSICAL
--- NOTE | ~2017-05-18 | DS ---
Unit #: [id number] #: [id number] Patient: CORAL [place] [id number] [place] [address] [id number] I MR#: [id number] NAME: CORAL MO ROOM: P214 Age: 56 Sex: M Admission Date: 05/19/2017 : 1960 Discharge Date: 05/21/2017 Attending Physician: Daniel Lopez M.D. Primary Care Physician: Generic Doctor Not In System DISCHARGE SUMMARY REASON FOR ADMISSION The patient is a 56-year-old white male, admitted after relapse of alcohol use, voicing positive suicidal ideation. DIAGNOSTIC STUDIES LABORATORY RESULTS: Included Depakote level on admission was less than 10. HOSPITAL COURSE The patient was admitted to the [facility] unit and placed on suicide precautions. Home medications were continued. The patient was generally active within the therapeutic milieu and complied with prescribed medications. He requested discharge on 05/21/2017 and it was so ordered. Clearly, the patient's compliance to medication outside the hospital is less than optimal if existent at all and his ongoing abuse of alcohol only exacerbates this issue. FINAL DIAGNOSES Bipolar disorder, most recent episode depressed; alcohol use disorder; diabetes mellitus; osteoarthritis; hypertension. DISPOSITION ON DISCHARGE The patient is discharged on the following medications; NovoLog sliding scale for diabetic management, Depakote ER 1500 mg at bedtime for mood stabilization, BuSpar 15 mg t.i.d. for anxiety, Celexa 20 mg daily for depression, Desyrel 100 mg at h.s. for insomnia, Naprosyn 375 mg b.i.d. for osteoarthritis, Norvasc 5 mg daily for hypertension, Glucophage 1000 mg b.i.d. for diabetic management, Colace 100 mg b.i.d. for constipation. DISCHARGE INSTRUCTIONS No dietary or physical restrictions were placed on the patient at the time of discharge. PROGNOSIS His prognosis remains guarded given his history of alcohol abuse for community support and lack of compliance with treatment. Dictated by... Daniel Lopez M.D. CB/higinio TD: 05/22/2017 04:36 Unit #: [id number] #: [id number] Patient: CORAL MO JOB #: [id number] DISCHARGE SUMMARY Page 1 of 1 X Daniel Lopez MD DISCHARGE SUMMARY
--- NOTE | ~2017-05-18 | PN ---
Unit #: [id number] #: [id number] Patient: CORAL [place] 867239 [facility] [address] [place] [address] [id number] Malini MR#: [id number] NAME: CORAL MO ROOM: P214 Age: 56 Sex: M Admission Date: 05/19/2017 : 1960 Attending Physician: Daniel Lopez M.D. Admitting Physician: Daniel Lopez M.D. Primary Care Physician: Generic Doctor Not In System [facility] PROGRESS NOTES DATE 05/20/2017 DISCUSSION The patient continues to complain of his living situation and does admit to recent relapse of alcohol use. I have spoken to the patient regarding his ongoing use of alcohol as well as his intolerable living situation. We will continue Depakote monotherapy given the patient's complaints of allergic reactions to most if not all secondary generation antipsychotic. Dictated by... Daniel Lopez M.D. CB/carter TD: 05/20/2017 15:44 JOB #: [id number] [facility] PROGRESS NOTES Page 1 of 1 X Daniel Lopez MD PROGRESS NOTE
== END 2017-05-21 15:20 | disposition home or self-care (01) | DRG 885 ==
LOC: P2S 05-19 07:32
DX: F31.9 Bipolar disorder, unspecified (principal); R45.851 Suicidal ideations; E66.2 Morbid (severe) obesity with alveolar hypoventilation; Z88.8 Allergy status to other drugs, medicaments and biological substances; E11.9 Type 2 diabetes mellitus without complications; M19.90 Unspecified osteoarthritis, unspecified site; I10 Essential (primary) hypertension
CPT/HCPCS: 80164; 82947

== ENCOUNTER 2017-06-13 09:00 | Inpatient (IN) | payer MEDICARE, OTHER ==
--- NOTE | ~2017-06-13 | DS ---
Unit #: [id number] #: [id number] Patient: CORAL MO [id number] [place] [address] [id number] I MR#: [id number] NAME: CORAL MO ROOM: P211 Age: 56 Sex: M Admission Date: 06/13/2017 : 1960 Discharge Date: 06/15/2017 Attending Physician: Daniel Lopez M.D. Primary Care Physician: Primary Care Physician No DISCHARGE SUMMARY REASON FOR ADMISSION The patient is a 56-year-old white male, well known to this facility admitted with suicidal ideation and increased alcohol use. HOSPITAL COURSE The patient was admitted to the [address] [place] [address] unit and placed on routine detoxification protocol for alcohol. Suicide precautions were put in place. The patient's home medications were restarted. The patient's stay in the hospital was a brief and uneventful one compared with others of recent vantage and the patient requested discharge on 06/15/2017. It was so ordered. FINAL DIAGNOSES Alcohol use disorder; bipolar disorder, most recent episode depressed; diabetes mellitus. DISPOSITION ON DISCHARGE The patient is discharged on the following medications: Glucophage 1000 mg b.i.d. for diabetic management, Naprosyn 375 mg every 12 hours p.r.n. arthritic pain, BuSpar 15 mg t.i.d. for anxiety, Depakote 500 mg the ER formulation at bedtime for mood stabilization. DISCHARGE INSTRUCTIONS No dietary or physical restrictions were placed upon the patient at the time of discharge. PROGNOSIS His prognosis is considered fair, but will be darkened considerably should he continue to abuse psychoactive substances such as alcohol and he continued to have such a lack of local support. Dictated by... Daniel Lopez M.D. CB/higniio TD: 06/15/2017 13:37 JOB #: [id number] Unit #: [id number] #: [id number] Patient: CORAL MO DISCHARGE SUMMARY Page 1 of 1 X Daniel Lopez MD X DISCHARGE SUMMARY
--- NOTE | ~2017-06-13 | CO ---
Unit #: [id number] #: [id number] Patient: ZURDO [place] 011319 [place] [address] [id number] I MR#: [id number] NAME: ZURDO MO ROOM: P211 Age: 56 Sex: M Admission Date: 06/13/2017 : 1960 Attending Physician: Daniel Lopez M.D. Primary Care Physician: Primary Care Physician No Consultation Date: 06/13/2017 CONSULTATION REPORT Medical consult was requested by Dr. Lopez and completed on 06/13/2017. HISTORY OF PRESENT ILLNESS Zurdo has a history of type 2 diabetes. He is supposed to take metformin at home; however, he reports that he has not been compliant with this. His fasting blood sugar this morning was 241. He also has complaints of numbness and tingling in his feet and his primary care provider reports this is likely due to his untreated diabetes. He has no other complaints. PHYSICAL EXAMINATION CARDIAC: Regular rate and rhythm. No murmurs, gallops, or rubs. RESPIRATORY: Clear to auscultation bilaterally. ASSESSMENT AND PLAN Type 2 diabetes. We will obtain fasting Accu-Chek. Also, please complete nightly foot induction and teach the patient to do this himself at home. Dictated by... Claudette Bajwa/higinio TD: 06/15/2017 16:38 JOB #: [id number] CONSULTATION REPORT Page 1 of 1 X MARY MAYBERRY APRN X CONSULTATION REPORT
--- NOTE | ~2017-06-13 | HP ---
Unit #: [id number] #: [id number] Patient: ZURDO MO 548156 [place] [address] [id number] I MR#: [id number] NAME: ZURDO MO ROOM: P211 Age: 56 Sex: M Admission Date: 06/13/2017 : 1960 Attending Physician: Daniel Lopez M.D. Admitting Physician: Daniel Lopez M.D. Primary Care Physician: Primary Care Physician No HISTORY AND PHYSICAL HISTORY OF PRESENT ILLNESS Zurdo is a 56-year-old male admitted on 06/13/[address] [place] [address] for detox from alcohol. PAST MEDICAL HISTORY 1. Type II diabetes. 2. Hypertension. 3. COPD. 4. Obesity. 5. Cirrhosis. PAST SURGICAL HISTORY None. SOCIAL HISTORY Smokes 1/2 pack of cigarettes daily, binge also use. Denies any illegal drug use. He is currently single and living alone. He is currently single and living alone. FAMILY HISTORY Noncontributory. REVIEW OF SYSTEMS CONSTITUTIONAL: No fever or chills. HEENT: Denies any sore throat, ear pain or runny nose. CARDIOVASCULAR: Denies chest pain, irregular heart rhythm or palpitations. CHEST: Denies shortness of breath or cough. No hemoptysis. GASTROINTESTINAL: Denies nausea, vomiting, diarrhea or chronic constipation. ENDOCRINE: Denies history of increased thirst or urination. No recent significant weight loss or gain. GENITOURINARY: Denies dysuria, frequency, or hematuria. SKIN: Denies any rashes. HEMATOLOGIC: Denies history of increased bleeding or bruising. MUSCULOSKELETAL: Denies any hot, swollen joints. No generalized muscle pain. NEUROLOGIC: Denies problems with vision or speech. No frequent, severe headaches. No numbness, tingling or weakness in any extremities. Denies loss of bladder or bowel control. CURRENT MEDICATIONS Unit #: [id number] #: [id number] Patient: ZURDO MO 1. BuSpar 2. Divalproex. 3. Metformin 4. Trazodone ALLERGIES Haldol, risperidone, Zyprexa and quetiapine. PHYSICAL EXAMINATION GENERAL: Alert, oriented, in no acute distress. VITAL SIGNS: Blood pressure 140/83, heart rate 100, respirations 22, temperature 98.5. HEIGHT: 6 foot 0 inches. WEIGHT: 260 pounds. SKIN: Warm and dry without rash or lesion. HEENT: Normocephalic. TMs not viewed. Oral and nasal passages clear. Conjunctivae clear. PERRLA. EOMs intact. NECK: Supple without lymphadenopathy or thyromegaly. HEART: Regular rate and rhythm without murmur. LUNGS: Clear. ABDOMEN: Soft, nontender, without masses or hepatosplenomegaly. : Not done. EXTREMITIES: No evidence of cyanosis, clubbing or edema. Moves all without focal deficit. NEUROLOGICAL: Grossly within normal limits. Cranial Nerves: II: Visual jackson are intact. III, IV AND : Extraocular movements are intact. Pupils are equal, round and reactive to light. V: Facial sensation is grossly normal. VII: Facial movements and expression are normal. VIII: Auditory acuity grossly intact. IX, X: Uvula is midline. Phonation is normal. XI: Patient shrugs shoulders and turns head normally. XII: Tongue protrudes in the midline. Sensory and Motor Function: Sensory and motor sensation is grossly normal. Motor: moves all extremities well. Coordination: Gait is normal. Deep Tendon Reflexes: Intact. IMPRESSION 1. Psychiatric admission. 2. Type II diabetes. 3. Hypertension. 4. COPD. 5. Obesity. 6. Cirrhosis. RECOMMENDATIONS Psychiatric, per psychiatrist. MEDICAL: I see no contraindications to participating in facility's activities. MEDICAL PROGNOSIS Good. MEDICAL CONDITION Stable. Unit #: [id number] #: [id number] Patient: ZURDO MO Dictated by... Claudette Bajwa/debra TD: 06/14/2017 01:40 JOB #: [id number] HISTORY AND PHYSICAL Page 1 of 1 X MARY MAYBERRY APRN X HISTORY AND PHYSICAL
--- NOTE | ~2017-06-13 | PN ---
Unit #: [id number] #: [id number] Patient: CORAL [place] [id number] [facility] [address] [place] [address] [id number] MR#: [id number] NAME: CORAL MO ROOM: P211 Age: 56 Sex: M Admission Date: 06/13/2017 : 1960 Attending Physician: Daniel Lopez M.D. Admitting Physician: Daniel Lopez M.D. Primary Care Physician: Primary Care Physician Carin DAMON PROGRESS NOTES DATE OF SERVICE: 06/14/2017 The patient reports happily that he has "not been dropped from the housing program." He exhibits a little in the way of signs or symptoms of withdrawal and is beginning to push for discharge, which would take place as early as tomorrow. Dictated by... Daniel Lopez M.D. CB/hannahl TD: 06/14/2017 14:21 JOB #: [id number] [facility] PROGRESS NOTES Page 1 of 1 X Daniel Lopez MD PROGRESS NOTE
--- NOTE | ~2017-06-13 | PA ---
Unit #: [id number] #: [id number] Patient: CORAL [place] [id number] [place] [address] [id number] MR#: [id number] NAME: CORAL MO ROOM: P211 Age: 56 Sex: M Admission Date: 06/13/2017 : 1960 Date of Assessment: 06/13/2017 Attending Physician: Daniel Lopez M.D. Admitting Physician: Daniel Lopez M.D. Primary Care Physician: Primary Care Physician No PSYCHIATRIC ASSESSMENT IDENTIFYING INFORMATION The patient is a 56-year-old single white male well known to this physician admitted in a state of intoxication complaining of depressed mood. INFORMANT(S) The patient. RELIABILITY Fair. CHIEF COMPLAINT None given. HISTORY OF PRESENT ILLNESS The patient is a 56-year-old white male admitted after he had presented to [facility] down voicing positive suicidal ideation. The patient was intoxicated at the time. The patient continues to smell of alcohol when evaluated this morning. The patient has complained recently of his living situation. The chart indicates that the patient is currently homeless. When seen today the patient continues to endorse hopelessness and suicidal ideation. He is quite intoxicated during interview. For more complete history of present illness please refer to previous dictated notes. PAST PSYCHIATRIC HISTORY Reviewed no changes. MEDICAL HISTORY Reviewed no changes. MEDICATIONS Depakote, BuSpar, metformin, Naprosyn. ALLERGIES None reported. FAMILY HISTORY Reviewed no changes. SOCIAL HISTORY Reviewed no changes. Unit #: [id number] #: [id number] Patient: CORAL MO MENTAL STATUS EXAMINATION At this time reveals the patient to be a slightly obese disheveled white male appearing his stated age. He smells heavily of alcohol and does appear to be quite intoxicated. He is awake, alert, and oriented in all spheres. His mood is dysphoric. His affect constricted. Speech is generally relevant and coherent. There are no gross deficits in memory or cognition noted. Intelligence is judged to be in the average range based on fund of knowledge. The patient is cooperative throughout the interview. He is currently reporting positive suicidal ideation. He denies homicidal ideation. He denies any psychotic symptoms. His judgment and insight appear to be reasonably intact. ASSETS AND LIABILITIES ASSETS: To be assessed. LIABILITIES: Lack of resources. DIAGNOSTIC IMPRESSION 1. Bipolar disorder, depressed phase. 2. Alcohol use disorder. 3. Diabetes mellitus. PSYCHIATRIC PLAN/TREATMENT GOALS The patient remains hospitalized for safety and stabilization. We will continue previously prescribed medications and a routine detoxification protocol has been ordered. Suicidal precautions are in place. ESTIMATED LENGTH OF STAY Five to seven days. Dictated by... Daniel Lopez M.D. EUGENIO/debra TD: 06/13/2017 21:41 JOB #: [id number] PSYCHIATRIC ASSESSMENT Page 1 of 1 X Daniel Lopez MD X PSYCHIATRIC ASSESSMENT
[2017-06-14 10:41] LABS: URINE APPEARANCE CLEAR; URINE BILIRUBIN NEG (NEG); URINE BLOOD NEG (NEG); URINE COLOR YELLOW; URINE GLUCOSE >1000 MG/DL (NEG); URINE KETONE NEG (NEG); URINE LEUKOCYTE ESTERASE NEG (NEG); URINE NITRATE NEG (NEG); URINE PROTEIN NEG (NEG); URINE SPECIFIC GRAVITY 1.016 (1.003-1.035); URINE UROBILINOGEN 0.2 MG/DL (NEG)
[2017-06-14 10:55] LABS: AMPHETAMINE NEG (NEG); BARBITURATES NEG (NEG); BENZODIAZEPINES NEG (NEG); COCAINE NEG (NEG); MARIJUANA NEG (NEG); OPIATES NEG (NEG); TRICYCLIC ANTIDEPRESSANTS NEG (NEG); U METHADONE NEG (NEG)
== END 2017-06-15 13:35 | DRG 885 ==
LOC: P2S 09:49
PROVIDERS: Specialist
PROC: HZ2ZZZZ Detoxification Services for Substance Abuse Treatment (ICD-10-PCS; principal; 2017-06-13)
DX: F31.9 Bipolar disorder, unspecified (principal); E11.9 Type 2 diabetes mellitus without complications; R45.851 Suicidal ideations; K74.60 Unspecified cirrhosis of liver; F10.10 Alcohol abuse, uncomplicated; I10 Essential (primary) hypertension; J44.9 Chronic obstructive pulmonary disease, unspecified; E66.9 Obesity, unspecified; F17.210 Nicotine dependence, cigarettes, uncomplicated; Z79.84 Long term (current) use of oral hypoglycemic drugs; Z91.14 Patient's other noncompliance with medication regimen
CPT/HCPCS: 80307; 81003; 82947